=== PATIENT | male | born 1960 | race Caucasian/White ===

== ENCOUNTER 2019-11-26 11:44 | Day surgery (SDC) | payer OTHER, SELFPAY ==
[2019-11-26] MEDS ORDERED: LIDOCAINE 2% 100MG/5ML SDV (FOR ANES.) As Ordered ONE (12:37)
[2019-11-26] MEDS ORDERED: propofoL 200 MG/20 ML VIAL As Ordered ONE (12:37)
[2019-11-26] MEDS ORDERED: MIDAZOLAM INJ 2MG/2ML VIAL (J2250 PER 1MG) As Ordered ONE (12:37)
[2019-11-26] MEDS ORDERED: fentaNYL 100 MCG/2 ML INJECTION (J3010) As Ordered ONE (12:37)
--- NOTE | 2020-02-18 15:56 | ROOR ---
Patient Name: Ace Culver Procedure Date: 11/26/2019 12:22 PM Date of : 1960 Age: 59 [facility]: [facility] Gender: Male Note Status: Finalized Procedure: Upper GI endoscopy Indications: Suspected malignant esophageal tumor Providers: Keaton Olivas MD Referring MD: SHAHEEN FORDE MD Requesting Provider: Medicines: Monitored Anesthesia Care Complications: No immediate complications. Procedure: Pre-Anesthesia Assessment: - Prior to the procedure, a History and Physical was performed, and patient medications and allergies were reviewed. The patient is competent. The risks and benefits of the procedure and the sedation options and risks were discussed with the patient. All questions were answered and informed consent was obtained. Patient identification and proposed procedure were verified by the physician, the nurse and the anesthesiologist in the procedure room. Mental Status Examination: alert and oriented. Airway Examination: normal oropharyngeal airway and neck mobility. Respiratory Examination: clear to auscultation. CV Examination: normal. Prophylactic Antibiotics: The patient does not require prophylactic antibiotics. Prior Anticoagulants: The patient has taken no previous anticoagulant or antiplatelet agents. ASA Grade Assessment: II - A patient with mild systemic disease. After reviewing the risks and benefits, the patient was deemed in satisfactory condition to undergo the procedure. The anesthesia plan was to use monitored anesthesia care (MAC). Immediately prior to administration of medications, the patient was re-assessed for adequacy to receive sedatives. The heart rate, respiratory rate, oxygen saturations, blood pressure, adequacy of pulmonary ventilation, and response to care were monitored throughout the procedure. The physical status of the patient was re-assessed after the procedure. The Endoscope was introduced through the mouth, and advanced to the second part of duodenum. The upper GI endoscopy was accomplished without difficulty. The patient tolerated the procedure well. Findings: A large, ulcerating mass with no bleeding and stigmata of recent bleeding was found in the lower third of the esophagus, 32 to 39 cm from the incisors. The mass was partially obstructing and circumferential. Biopsies were taken with a cold forceps for histology. Verification of patient identification for the specimen was done by the physician and nurse using the patient's name, date and medical record number. One malignant-appearing, intrinsic severe (stenosis; an endoscope cannot pass) stenosis was found 32 to 39 cm from the incisors. This stenosis measured 8 mm (inner diameter) x 7 cm (in length). The stenosis was traversed after downsizing scope. Scattered moderate inflammation characterized by erythema, friability and granularity was found in the gastric body and in the gastric antrum. Biopsies were taken with a cold forceps for Helicobacter pylori testing. The duodenal bulb and second portion of the duodenum were normal. Impression: - Partially obstructing, likely malignant esophageal tumor was found in the lower third of the esophagus. Biopsied. - Malignant-appearing esophageal stenosis. - Gastritis. Biopsied. - Normal duodenal bulb and second portion of the duodenum. Recommendation: - Patient has a contact number available for emergencies. The signs and symptoms of potential delayed complications were discussed with the patient. Return to normal activities tomorrow. Written discharge instructions were provided to the patient. - Pureed diet and soft diet. - Continue present medications. 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 - Await pathology results. - Refer to a surgeon at appointment to be scheduled. - Perform an upper endoscopic ultrasound (UEUS) at appointment to be scheduled. - Refer to an oncologist as previously scheduled. - Return to primary care physician. - Return to GI clinic after studies are complete. Keaton Olivas MD Keaton Olivas MD 11/26/2019 1:02:42 PM Number of Addenda: 0 Note Initiated On: 11/26/2019 12:22 PM Estimated Blood Loss: Estimated blood loss was minimal.
== END 2019-11-26 14:10 | disposition home or self-care (01) ==
LOC: M SDC 11:44
PROVIDERS: ATTEND Internal Medicine Gastroenterology
DX: D49.0 Neoplasm of unspecified behavior of digestive system (principal); K22.2 Esophageal obstruction; K29.70 Gastritis, unspecified, without bleeding; Z79.899 Other long term (current) drug therapy
CPT/HCPCS: 43239; 88305; J2250; J3010

== ENCOUNTER → 2019-12-09 | Outpatient (CLI) | payer OTHER, SELFPAY ==
--- NOTE | 2020-01-09 11:31 | REP ---
PET CT HISTORY: Staging esophageal carcinoma. COMPARISON: Soft tissue neck CT 09/16/2019, esophagram 11/14/2019, chest CT 12/02/2019, and abdomen CT 12/02/2019 have been retrieved from [facility] and are reviewed. TECHNIQUE: 53 minutes following the intravenous injection of an 8.21 mCi F18 FDG dose, PET CT acquisition was performed from the skull base through the proximal thighs. PET CT FINDINGS: The known distal third esophageal primary is quite hypermetabolic with maximum standard uptake value ranging up to 12.32. There is hypermetabolic adenopathy at the thoracic inlet. An anterior kevin focus of hypermetabolic uptake is seen in the suprasternal notch just anterior to the trachea with maximum standard uptake value 9.19. There is right supraclavicular hypermetabolic adenopathy with maximum standard uptake value 13.51. There is a small left paratracheal lymph node, which is not visibly hypermetabolic. This is normal in size. No other adenopathy is seen. There is asymmetric uptake in the supraglottic larynx on the left with maximum standard uptake value 11.87. This is of uncertain significance and should be correlated with indirect laryngoscopy visualization. It may be a normal variant. There is no abnormal upper abdominal adenopathy. There is no evidence of abnormal uptake in the liver. No abnormal hypermetabolic focus is seen in the abdomen or pelvis. IMPRESSION: Hypermetabolic uptake is seen in the known distal esophageal primary, as well as lymphadenopathy in the right supraclavicular and thoracic inlet regions anteriorly. Equivocal uptake in the supraglottic larynx on the left. MTDD
== END ==
LOC: M PLARAD 12:00
PROVIDERS: ATTEND Family Medicine
DX: C15.9 Malignant neoplasm of esophagus, unspecified (principal)
CPT/HCPCS: 78815; A9552

== ENCOUNTER → 2021-06-06 | Outpatient (CLI) | payer OTHER | LOC: M LABSMTC 09:08 | PROVIDERS: ATTEND Anesthesiology | DX: Z01.812 Encounter for preprocedural laboratory examination (principal); Z20.822 Contact with and (suspected) exposure to COVID-19 ==

== ENCOUNTER 2021-06-10 11:57 | Day surgery (SDC) | payer OTHER ==
[~2021-06-10] VITALS: Ht 172.7 cm; Wt 71.9 kg
[~2021-06-10 11:57] MED LIST: NS 1,000 ML IV ONE
[2021-06-10] MEDS ORDERED: propofoL 200 MG/20 ML VIAL As Ordered ONE (14:00)
[2021-06-10] MEDS ORDERED: LIDOCAINE 2% 100MG/5ML SDV (FOR ANES.) As Ordered ONE (14:00)
[2021-06-10 15:11] VITALS: BP 116/81
== END 2021-06-10 15:11 | disposition home or self-care (01) ==
LOC: M OPP 11:57
PROVIDERS: ATTEND Internal Medicine Gastroenterology
DX: K44.9 Diaphragmatic hernia without obstruction or gangrene (principal); K22.2 Esophageal obstruction; K21.00 Gastro-esophageal reflux disease with esophagitis, without bleeding; Z85.01 Personal history of malignant neoplasm of esophagus; R13.10 Dysphagia, unspecified; Z92.3 Personal history of irradiation; Z92.21 Personal history of antineoplastic chemotherapy